=== PATIENT | female | born 1975 | race Caucasian/White ===

== ENCOUNTER → 2017-06-11 | Outpatient (CLI) | payer MEDICARE, OTHER | END | disposition home or self-care (01) | LOC: RADMAMWWP 15:06 | PROVIDERS: ATTEND Family Medicine | DX: Z53.9 Procedure and treatment not carried out, unspecified reason (principal) ==

== ENCOUNTER → 2017-12-14 | Outpatient (CLI) | payer MEDICARE, OTHER ==
--- NOTE | 2017-12-15 11:13 | MM ---
Reason for exam: screening (asymptomatic). Last mammogram was performed 2 years and 4 months ago. History: Family history of breast cancer in paternal grandmother at age 60 and breast cancer in grandmother at age 80. Took hormonal contraceptives for 5 years. Physical Findings: A clinical breast exam by your physician is recommended on an annual basis and results should be correlated with mammographic findings. MG 3D Screening Mammo W/Cad Bilateral CC and MLO view(s) were taken. Prior study comparison: August 02, 2015, bilateral MG 3d screening mammo w/cad. February 09, 2013, CAD bilateral diagnostic mammogram. The breast tissue is heterogeneously dense. This may lower the sensitivity of mammography. Focal asymmetry upper outer left breast 10.4cm from nipple. This finding is changed when compared with previous exams. ASSESSMENT: Incomplete: need additional imaging evaluation, BI-RAD 0 RECOMMENDATION: Special view mammogram of the left breast. If lesion persists on supplemental views, image directed ultrasound is recommended. [facility] will attempt to contact patient to return for supplemental views and ultrasound if indicated.
== END | disposition home or self-care (01) ==
LOC: RADMAMWWP 11:50
PROVIDERS: ATTEND Family Medicine
DX: Z12.31 Encounter for screening mammogram for malignant neoplasm of breast (principal)
CPT/HCPCS: 77063; 77067

== ENCOUNTER → 2017-12-29 | Outpatient (CLI) | payer MEDICARE, OTHER ==
--- NOTE | 2017-12-30 13:01 | MM ---
Reason for exam: additional evaluation requested from abnormal screening. Last mammogram was performed less than 1 month ago. History: Family history of breast cancer in paternal grandmother at age 60 and breast cancer in grandmother at age 80. Took hormonal contraceptives for 5 years. Physical Findings: Nurse did not find any significant physical abnormalities on exam. MG 3D Work Up W/Cad LT Spot compression CC, spot compression MLO, and LM view(s) were taken of the left breast. Prior study comparison: December 14, 2017, bilateral MG 3d screening mammo w/cad. August 02, 2015, bilateral MG 3d screening mammo w/cad. Persistent asymmetry upper outer left breast 12cm from nipple. These results were verbally communicated with the patient and result sheet given to the patient on 12/29/17. ASSESSMENT: Incomplete: need additional imaging evaluation, BI-RAD 0 RECOMMENDATION: Ultrasound of the left breast.
--- NOTE | 2017-12-30 13:03 | USB ---
Reason for exam: additional evaluation requested from abnormal screening. History: Family history of breast cancer in paternal grandmother at age 60 and breast cancer in grandmother at age 80. Took hormonal contraceptives for 5 years. US Breast Workup Limited LT Left limited breast ultrasound including focal area of concern, retroareolar and axilla demonstrates no cystic or solid lesion seen. These results were verbally communicated with the patient and result sheet given to the patient on 12/29/17. ASSESSMENT: Probably benign, BI-RAD 3 RECOMMENDATION: Follow-up diagnostic mammogram of the left breast in 6 months.
== END | disposition home or self-care (01) ==
LOC: RADMAMWWP 13:44
PROVIDERS: ATTEND Family Medicine
DX: R92.8 Other abnormal and inconclusive findings on diagnostic imaging of breast (principal)
CPT/HCPCS: 77065; 76642; G0279; 77061

== ENCOUNTER → 2018-01-18 | Outpatient (CLI) | payer MEDICARE, OTHER ==
--- NOTE | 2018-01-18 22:02 | CONS ---
CONSULTATION REASON FOR CONSULTATION: Sleep apnea. This is a 42-year-old female patient with known history of chronic anxiety, chronic panic attacks, chronic depression and bipolar disorder and history of delusions along with hypothyroidism and degenerative arthritis. The patient comes in for evaluation of sleep apnea. The patient states that she cannot breathe at night when she is lying down. She wakes up frequently and she has been told that she snores and she has night sweats. She has Mallampati class IV. Her weight has been essentially stable without any recent weight gain or weight loss. She does have a component of insomnia. She goes to bed around 11:30 p.m. and it sometimes takes her up to 5 a.m. to fall asleep. She attributes this to excessive anxiety. She feels restless in bed. Weight is stable at around 140, which is around 25 pounds up over the past few years. She sleeps on her side. She wakes up at least 4 to 5 times in the middle of the night. Current [place] Score is 9. PAST MEDICAL HISTORY: 1. Anxiety. 2. Panic attacks. 3. Depression. 4. Bipolar disorder. 5. Delusions. 6. Hypothyroidism. 7. Degenerative arthritis. PAST SURGICAL HISTORY: 1. Laparoscopy x3. 2. Right knee arthroscopy in July 2017. DRUG ALLERGIES: PENICILLIN AND LATEX. OUTPATIENT MEDICATION LIST: 1. Lamictal 50 mg p.o. daily. 2. Meloxicam 7.5 mg twice a day. 3. VESIcare 10 mg p.o. daily. 4. Klonopin 0.5 mg twice a day. FAMILY HISTORY: The patient is living alone right now. Her sister has insomnia. No history of any sleep breathing disorder. REVIEW OF SYSTEMS: Twelve-point review of systems was done. Positive findings are all mentioned above. She feels exhausted and tired during the day. Not a whole lot of sleepiness. No nightmares. No dreams. No history of any PTSD. No excessive coffee intake. Her weight has been stable. No history of substance abuse. No history of alcoholism. She drinks about 2 drinks every week. She has had no palpitations, no heartburn, no grinding of the teeth. No nocturia. PHYSICAL EXAMINATION: BP is 138/82, pulse 98, respirations 18, temperature 98.2, saturation 94% on room air. Neck size is 13. [place] score is 9. BMI 32.7. Weight is 165. GENERAL APPEARANCE: Calm, comfortable. Head is atraumatic, normocephalic. NECK: Supple. There is no JVD. No goiter or neck masses. Mallampati class III. LUNGS: Clear to auscultation. Heart sounds are regular rate and rhythm. Normal S1, S2. No S3, S4. No murmurs. ABDOMEN: Soft, nontender. No organomegaly. EXTREMITIES: No edema. No cyanosis or clubbing. NEUROLOGIC: The patient is awake and alert. No focal neurological deficits. SKIN: Negative for any wounds or ulceration. IMPRESSION: 1. Obstructive sleep apnea suspected, under investigation. 2. Sleep fragmentation, probably related to obstructive sleep apnea, although other factors are also contributing to her condition, and I do suspect a component of sleep onset and maintenance insomnia related to chronic anxiety and panic attacks and depression. Obviously the patient may have an underlying comorbid insomnia in addition. 3. Anxiety. 4. Panic attacks. 5. Depression. 6. Delusions. 7. Hypothyroidism. 8. Degenerative arthritis. PLAN: 1. Continue Klonopin at bedtime for sleep induction and maintenance. 2. Continue Lamictal for bipolar disorder. 3. Implement good sleep hygiene measures. 4. Proceed with a screening polysomnogram to characterize her sleep quality and see if there is any other contributing factor to her poor sleep quality in general. Will continue to follow and make further recommendations based on her overall progress. The results of the sleep study will be important to identify the factors affecting her sleep quality and make adjustments accordingly. MMODL / IJN: [id number] /
== END | disposition home or self-care (01) ==
LOC: SLEEP 13:15
PROVIDERS: ATTEND Internal Medicine Critical Care Medicine
DX: G47.00 Insomnia, unspecified (principal); F41.9 Anxiety disorder, unspecified; M19.90 Unspecified osteoarthritis, unspecified site; F32.9 Major depressive disorder, single episode, unspecified; F41.0 Panic disorder [episodic paroxysmal anxiety]; F22 Delusional disorders; E03.9 Hypothyroidism, unspecified; Z79.899 Other long term (current) drug therapy; Z79.1 Long term (current) use of non-steroidal anti-inflammatories (NSAID); Z88.0 Allergy status to penicillin; Z91.040 Latex allergy status
CPT/HCPCS: 99211

== ENCOUNTER 2018-10-24 16:26 | Emergency (ER) | payer MEDICARE, OTHER ==
[2018-10-24 16:34] VITALS: RESP 18
[2018-10-24] MEDS ORDERED: SODIUM CHLORIDE 0.9% 1,000 ML IV STA (17:49)
[2018-10-24] MEDS ORDERED: KETOROLAC 30 MG/ML 1 ML VIAL IVP STA (17:49)
--- NOTE | 2018-10-24 17:49 | ED ---
General Adult HPI - General Chief complaint: Abdominal Pain Stated complaint: abd.pain/back pain Time Seen by Provider: 10/24/18 17:25 Source: patient Mode of arrival: ambulatory Limitations: no limitations - History of Present Illness Initial comments: Dictation was produced using x.ai dictation software. please excuse any grammatical, word or spelling errors. Chief Complaint: 43-year-old female with no significant comorbidities presents with total body pain. History of Present Illness: A 43-year-old female presents with total body pain. Patient states she's been feeling this way for several days now. She had a similar episode to this several years ago. She states that she has no one specific complaint. She states she hurts from the top of her head to her abdominal area. Patient denies any significant comorbidities. Denies history of fibromyalgia. Patient has no nausea vomiting or fever. Patient does describe the pain as vague with no exacerbating or mitigating factors. The ROS documented in this emergency department record has been reviewed and confirmed by me. Those systems with pertinent positive or negative responses have been documented in the HPI. All other systems are other negative and/or noncontributory. PHYSICAL EXAM: General Impression: Alert and oriented x3, not in acute distress HEENT: Normocephalic atraumatic, extra-ocular movements intact, pupils equal and reactive to light bilaterally, mucous membranes moist. Cardiovascular: Heart regular rate and rhythm, S1&S2 audible, no murmurs, rubs or gallops Chest: Lungs clear to auscultation bilaterally, no rhonchi, no wheeze, no rales Abdomen: Bowel sounds present, abdomen soft, non-tender, non-distended, no organomegaly Musculoskeletal: Pulses present and equal in all extremities, no peripheral edema Motor: no focal deficits noted Neurological: CN II-XII grossly intact, no focal motor or sensory deficits noted Skin: Intact with no visualized rashes Psych: Normal affect and mood ED course: 43-year-old female presents today with chief complaint of total body pain. Vital signs upon arrival are within acceptable limits.Patient reevaluated found in stable medical condition. She does report mild improvement of her symptoms after intravenous fluids and Toradol. Laboratory evaluation obtained. CBC unremarkable. Metabolic panel shows mild gap acidosis. Patient does have 1+ ketones in the urine. Patient's symptoms likely secondary to dehydration. Patient on a pillow bedside care she is given 1 L of intravenous fluids. Patient told that she has acidosis found on her laboratory evaluation. Patient otherwise appears stable. Clear for discharge per she is told to follow-up with her primary care doctor upon discharge. Patient is understandable and agreeable to Disposition. - Related Data Home Medications Medication Instructions Recorded Confirmed Gabapentin 600 mg PO TID PRN 10/24/18 10/24/18 Levothyroxine Sodium [Tirosint] 25 mcg PO DAILY 10/24/18 10/24/18 Montelukast [Singulair] 10 mg PO HS 10/24/18 10/24/18 Allergies Allergy/AdvReac Type Severity Reaction Status Date / Time latex Allergy Itching Verified 10/24/18 17:37 Penicillins Allergy Unknown Verified 10/24/18 17:37 Review of Systems ROS Statement: Those systems with pertinent positive or pertinent negative responses have been documented in the HPI. ROS Other: All systems not noted in ROS Statement are negative. Past Medical History Past Medical History: No Reported History Additional Past Medical History / Comment(s): endometrosis History of Any Multi-Drug Resistant Organisms: None Reported Past Surgical History: No Surgical Hx Reported Past Psychological History: Anxiety, Bipolar Smoking Status: Current every day smoker Past Alcohol Use History: None Reported Past Drug Use History: None Reported General Exam Limitations: no limitations Course Vital Signs 10/24/18 16:30 Temperature 98.4 F Pulse Rate 83 Respiratory 18 Rate Blood Pressure 122/78 O2 Sat by Pulse 98 Oximetry Medical Decision Making - Lab Data Result diagrams: 10/24/18 18:00 10/24/18 18:00 Lab Results 10/24/18 10/24/18 10/24/18 Range/Units 18:00 18:00 18:27 WBC 8.2 (3.8-10.6) k/uL RBC 4.85 (3.80-5.40) m/uL Hgb 14.7 (11.4-16.0) gm/dL Hct 41.9 (34.0-46.0) % MCV 86.3 (80.0-100.0) fL MCH 30.3 (25.0-35.0) pg MCHC 35.1 (31.0-37.0) g/dL RDW 13.0 (11.5-15.5) % Plt Count 332 (150-450) k/uL Neutrophils % 71 % Lymphocytes % 20 % Monocytes % 6 % Eosinophils % 2 % Basophils % 1 % Neutrophils # 5.8 (1.3-7.7) k/uL Lymphocytes # 1.6 (1.0-4.8) k/uL Monocytes # 0.5 (0-1.0) k/uL Eosinophils # 0.1 (0-0.7) k/uL Basophils # 0.1 (0-0.2) k/uL Sodium 140 (137-145) mmol/L Potassium 4.1 (3.5-5.1) mmol/L Chloride 109 H (98-107) mmol/L Carbon Dioxide 21 L (22-30) mmol/L Anion Gap 10 mmol/L BUN 13 (7-17) mg/dL Creatinine 0.42 L (0.52-1.04) mg/dL Est GFR (CKD-EPI)AfAm >90 (>60 ml/min/1.73 sqM) Est GFR (CKD-EPI)NonAf >90 (>60 ml/min/1.73 sqM) Glucose 88 (74-99) mg/dL Calcium 9.7 (8.4-10.2) mg/dL Magnesium 1.8 (1.6-2.3) mg/dL Creatine Kinase 96 (30-135) U/L Urine Color Urine Appearance (Clear) Urine pH (5.0-8.0) Ur Specific [place] (1.001-1.035) Urine Protein (Negative) Urine Glucose (UA) (Negative) Urine Ketones (Negative) Urine Blood (Negative) Urine Nitrite (Negative) Urine Bilirubin (Negative) Urine Urobilinogen (<2.0) mg/dL Ur Leukocyte Esterase (Negative) Urine RBC (0-5) /hpf Urine WBC (0-5) /hpf Ur Squamous Epith Cells (0-4) /hpf Urine Bacteria (None) /hpf Urine Mucus (None) /hpf Urine HCG, Qual Not Detected (Not Detectd) 10/24/18 Range/Units 18:27 WBC (3.8-10.6) k/uL RBC (3.80-5.40) m/uL Hgb (11.4-16.0) gm/dL Hct (34.0-46.0) % MCV (80.0-100.0) fL MCH (25.0-35.0) pg MCHC (31.0-37.0) g/dL RDW (11.5-15.5) % Plt Count (150-450) k/uL Neutrophils % % Lymphocytes % % Monocytes % % Eosinophils % % Basophils % % Neutrophils # (1.3-7.7) k/uL Lymphocytes # (1.0-4.8) k/uL Monocytes # (0-1.0) k/uL Eosinophils # (0-0.7) k/uL Basophils # (0-0.2) k/uL Sodium (137-145) mmol/L Potassium (3.5-5.1) mmol/L Chloride (98-107) mmol/L Carbon Dioxide (22-30) mmol/L Anion Gap mmol/L BUN (7-17) mg/dL Creatinine (0.52-1.04) mg/dL Est GFR (CKD-EPI)AfAm (>60 ml/min/1.73 sqM) Est GFR (CKD-EPI)NonAf (>60 ml/min/1.73 sqM) Glucose (74-99) mg/dL Calcium (8.4-10.2) mg/dL Magnesium (1.6-2.3) mg/dL Creatine Kinase (30-135) U/L Urine Color Yellow Urine Appearance Clear (Clear) Urine pH 6.0 (5.0-8.0) Ur Specific [place] 1.018 (1.001-1.035) Urine Protein Negative (Negative) Urine Glucose (UA) Negative (Negative) Urine Ketones 1+ H (Negative) Urine Blood Small H (Negative) Urine Nitrite Negative (Negative) Urine Bilirubin Negative (Negative) Urine Urobilinogen <2.0 (<2.0) mg/dL Ur Leukocyte Esterase Negative (Negative) Urine RBC 7 H (0-5) /hpf Urine WBC 2 (0-5) /hpf Ur Squamous Epith Cells <1 (0-4) /hpf Urine Bacteria Rare H (None) /hpf Urine Mucus Rare H (None) /hpf Urine HCG, Qual (Not Detectd) Disposition Clinical Impression: Pain, Dehydration Disposition: HOME SELF-CARE Condition: Good Instructions (If sedation given, give patient instructions): Dehydration (ED) Is patient prescribed a controlled substance at d/c from ED?: No Referrals: Kate Spangler III, MD [Primary Care Provider] - 1-2 days Time of Disposition: 19:32
[2018-10-24 18:13] LABS: Basophils # (A) 0.1 k/uL (0-0.2); Basophils % (A) 1 %; Eosinophils # (A) 0.1 k/uL (0-0.7); Eosinophils % (A) 2 %; HCT 41.9 % (34.0-46.0); HGB 14.7 gm/dL (11.4-16.0); Lymphocytes # (A) 1.6 k/uL (1.0-4.8); Lymphocytes % (A) 20 %; MCH 30.3 pg (25.0-35.0); MCHC 35.1 g/dL (31.0-37.0); MCV 86.3 fL (80.0-100.0); Mean Platelet Volume 6.8; Monocytes # (A) 0.5 k/uL (0-1.0); Monocytes % (A) 6 %; Neutrophils # (A) 5.8 k/uL (1.3-7.7); Neutrophils % (A) 71 %; Platelet Count 332 k/uL (150-450); RBC 4.85 m/uL (3.80-5.40); WBC 8.2 k/uL (3.8-10.6)
[2018-10-24 18:17] LABS: Anion Gap 10 mmol/L; Blood Urea Nitrogen 13 mg/dL (7-17); Calcium 9.7 mg/dL (8.4-10.2); Carbon Dioxide 21 mmol/L (22-30); Chloride 109 mmol/L (98-107); Creatine Kinase 96 U/L (30-135); Glucose 88 mg/dL (74-99); Magnesium 1.8 mg/dL (1.6-2.3); Potassium 4.1 mmol/L (3.5-5.1); Sodium 140 mmol/L (137-145)
[2018-10-24 18:32] LABS: Appearance,Urine Clear (Clear); Bacteria,Urine Rare /hpf; Bilirubin,Urine Negative (Negative); Blood,Urine Small (Negative); Color,Urine Yellow; Glucose,Urine (UA) Negative (Negative); Ketones,Urine 1+ (Negative); Leukocyte Esterase,Urine Negative (Negative); Mucus,Urine Rare /hpf; Nitrite,Urine Negative (Negative); Protein,Urine Negative (Negative); RBC,Urine 7 /hpf (0-5); Specific Gravity,Urine 1.018 (1.001-1.035); Squamous Epithelial Cell,Urine <1 /hpf (0-4); Urobilinogen,Urine <2.0 mg/dL (<2.0)
--- NOTE | 2018-10-24 18:38 | XR ---
EXAMINATION TYPE: XR shoulder complete LT DATE OF EXAM: 10/24/2018 CLINICAL HISTORY: Pain. TECHNIQUE: Three views of the left shoulder are obtained. COMPARISON: None. FINDINGS: There is no acute fracture/dislocation evident in the left shoulder. The acromioclavicula r and glenohumeral joint spaces appear within normal limits. The visualized ribs are intact and unre markable. Superior to left acromioclavicular joint there is soft tissue indentation likely reflecting overlying clothing or bandage material. IMPRESSION: There is no acute fracture or dislocation in the left shoulder.
[2018-10-24 20:04] VITALS: BP 124/87; PULSE 87; TEMP 98.2
== END 2018-10-24 20:03 | disposition home or self-care (01) ==
LOC: EC 16:26
DX: E86.0 Dehydration (principal); R52 Pain, unspecified; E87.2 Acidosis; F17.200 Nicotine dependence, unspecified, uncomplicated; Z79.890 Hormone replacement therapy; Z79.899 Other long term (current) drug therapy; Z88.0 Allergy status to penicillin; Z91.040 Latex allergy status
CPT/HCPCS: 36415; 80048; 82550; 83735; 85025; 81001; 81025; 73030; 99284; 96374; 96361; J1885

== ENCOUNTER → 2018-12-16 | Outpatient (CLI) | payer MEDICARE, OTHER ==
--- NOTE | 2018-12-16 15:24 | CT ---
EXAMINATION TYPE: CT abdomen pelvis w con DATE OF EXAM: 12/16/2018 COMPARISON: None HISTORY: Epigastric pain. CT DLP: 595 mGycm CONTRAST: CT scan of the abdomen and pelvis is performed with Oral Contrast and with IV Contrast, patient injec victoria with 100ml mL of Isovue 300. FINDINGS: LUNG BASES-: No visible nodule. No infiltrate. LIVER/GB: No calcified gallstones. No space occupying hepatic lesion. Biliary tree is of normal ca liber. PANCREAS: No inflammation. No distinct mass. SPLEEN: No splenic enlargement. No lesion seen. ADRENALS: No nodule. No thickening. KIDNEYS/BLADDER: No hydronephrosis. No nephrolithiasis. No distinct renal mass. Urinary bladder g rossly unremarkable. BOWEL: Normal appendix. Normal bowel caliber. No inflammation. GENITAL ORGANS: Prominence of the uterus. Underlying leiomyomatous changes difficult to exclude. Lef t ovarian cyst measuring 1.1 cm. Right ovary is unremarkable. LYMPH NODES: No greater than 1cm abdominal or pelvic lymph nodes are appreciated. AORTA: No significant abnormality. OSSEOUS STRUCTURES: No significant abnormality is seen. OTHER: 4.0 x 2.2 cm midline ventral hernia at the level of the distal stomach just to the right of mi dline. IMPRESSION: 1. Fat-containing ventral hernia as discussed above. 2. Probable leiomyomatous change of the uterus. Left ovarian follicular cyst.
== END | disposition home or self-care (01) ==
LOC: RADCTMAIN 13:26
PROVIDERS: ATTEND Surgery
DX: K44.9 Diaphragmatic hernia without obstruction or gangrene (principal); N83.02 Follicular cyst of left ovary
CPT/HCPCS: 74177; Q9967

== ENCOUNTER → 2019-03-07 | Outpatient (CLI) | payer MEDICARE, OTHER ==
--- NOTE | 2019-03-07 15:41 | PN ---
PROGRESS NOTE Paola is 43 and she was asked to come and see me back due to the concerns of her narcolepsy. I have seen and evaluated this patient back in December of 2017. At that time, the patient was having chronic anxiety, chronic panic attacks. Chronic depression and bipolar disorder, and hypothyroidism. She was in a combination of medication including Klonopin. Over the past 2 years, there has been some adjustment in her medication. She was given trazodone for sleep induction and maintenance. This was given to her by her psychiatrist. The patient was having chronic comorbid insomnia. I saw this patient in consultation back in 2018. I did a sleep study on her and there was no indication of any sleep breathing disorder. The patient was able to generate 6 hours and 50 minutes of sleep without any major difficulties with an efficiency of 90%. Her latency to REM was 70 minutes and the sleep architecture showed 16% REM sleep. The patient has no sleep paralysis, no hallucinations, no cataplexy at all. Her weight has remained stable. The patient's sleep study showed primary snoring with an AHI of 0.9 without any major hypersomnia is without any major obstructive apneas or hypopneas. On today's evaluation. I reviewed. MEDICATION LIST: The patient is currently on trazodone 50 mg at bedtime. She is also on Neurontin 300 mg t.i.d. Benadryl 0.25 mg twice a day p.r.n. a Singulair 10 mg p.o. daily. REVIEW OF SYSTEMS: A 14-point review of system was done. Positive findings are mentioned above history of present illness. She is tired during the day. At times she feels lack of concentration. She does not have any substance abuse. No alcoholism. She does not take any substances to get herself stimulated during the day. No palpitation no heartburn no chest pain. No shortness of breath. No altered mentation. No headaches no altered mentation. No seizure activity. PHYSICAL EXAMINATION: BP is 111/70, pulse 90, respirations 16, temperature 98.2, saturation is 96% on room air. Height is 5,0, weight is 147, BMI is 28.5. GENERAL APPEARANCE: Calm, comfortable. Head is atraumatic, normocephalic. NECK: Supple. No JVD. No goiter or neck masses. LUNGS: Clear to auscultation. HEART: Sounds regular rate and rhythm. Normal S1/S2. No murmurs. ABDOMEN: Soft, nontender. No organomegaly. EXTREMITIES: No edema. No cyanosis or clubbing. IMPRESSION: 1. Primary snoring without evidence of sleep breathing disorder. 2. Comorbid insomnia currently on trazodone 150 mg with adequate ability to induce and maintain sleep/. 3. Chronic anxiety/depression. 4. History of panic attacks. 5. History of hypothyroidism. 6. History of delusions. PLAN: This patient does not have any indication to narcolepsy. As such, I do not see the need for PSG MSLT. In fact, during the study like this will require her to come off it as well. The patient is categorically refusing to cover trazodone for now knowing that this has helped with sleep induction and maintenance. As such, especially when the patient is taking trazodone, evaluation for narcolepsy is not possible. Also, the patient does not have any signs of narcolepsy. In fact, despite her chronic fatigue and tiredness, she has insomnia for which she is taking trazodone. Insomnia runs in her family. Currently is a comorbid insomnia. May suggest a stimulant to improve her functionality during the day if needed. This may be either in the form of Provigil or even though stimulant, leave the final decision up to a psychiatrist. No need for repeating the PSG or even considering MSLT at this point in time. MMODL / IJN: [id number] /

== ENCOUNTER → 2019-03-08 | Outpatient (CLI) | payer MEDICARE, OTHER ==
--- NOTE | 2019-03-09 02:59 | MR ---
EXAMINATION TYPE: MR brain wo/w con DATE OF EXAM: 03/08/2019 COMPARISON: 06/27/2015 HISTORY: Migraine, dizziness TECHNIQUE: Multiplanar, multisequence images of the brain and brainstem is performed without and with IV contras t, utilizing 7 mL intravenous Gadavist . FINDINGS: Ventricles of normal size. There is no mass effect nor midline shift. There is no sign of intracrania l hemorrhage. Brainstem is intact. There is no evidence of cerebral edema. Corpus callosum appears no rmal. Sella turcica appears normal. There is no evidence of orbital mass. There is no evidence of cor tical infarct. There is no pathologic enhancement. There is normal contrast opacification of the veno us sinuses. IMPRESSION: Normal MR scan of the brain. No change compared to old exam.
== END | disposition home or self-care (01) ==
LOC: RADMRIMAIN 15:41
PROVIDERS: ATTEND Psychiatry & Neurology Neurology
DX: G43.909 Migraine, unspecified, not intractable, without status migrainosus (principal); R42 Dizziness and giddiness
CPT/HCPCS: 70553; A9585

== ENCOUNTER → 2019-08-01 | Outpatient (CLI) | payer MEDICARE, OTHER ==
--- NOTE | 2019-08-01 16:21 | MR ---
EXAMINATION TYPE: MR cervical spine wo con DATE OF EXAM: 08/01/2019 COMPARISON: 05/10/2015 HISTORY: 44-year-old female Radiculopathy cervical region TECHNIQUE: Multiplanar, multisequence images of the cervical spine were acquired. FINDINGS: No craniocervical junction anomaly, predental space widening, or prevertebral soft tissue swelling. Reversal of the normal cervical lordosis but with preserved alignment. Mild heterogeneity of marrow signal without suspicious bone marrow placement. Benign fatty matrix hem angioma within the C7 vertebral body is unchanged. Mild multilevel degenerative disc disease shows progression from 2014 with greater degree of disc yung iccation. Posterior disc bulges are present now at C4-C5 and C5-C6. Scattered facet and uncovertebral joint arthropathy. At C2-C3, no canal or foraminal stenosis. At C3-C4, no canal or foraminal stenosis. At C4-C5, minimal posterior disc bulge with very mild narrowing of the spinal canal. No neuroforamina l stenosis. At C5-C6, there is posterior disc bulge with needle large edematous left paracentral disc extrusion i mpinging the left ventral cord causing a moderate overall spinal canal stenosis and severe left neuro foraminal stenosis. No edematous change seen within the cord at this level. At C6/C7, mild posterior disc bulge with mild facet arthropathy. No significant canal or foraminal st enosis. At C7-T1, mild facet arthropathy without significant canal or foraminal stenosis. IMPRESSION: 1. Mild multilevel degenerative disc disease progressed from 2014. 2. Reversal of the normal cervical lordosis centered at C5-C6 where there is greater degree of senior safety support manager ior disc bulging and a new large left paracentral disc extrusion. The herniated disc is edematous and impinges the left ventral cord causing a moderate overall spinal canal stenosis. No myelopathic cord signal change. Severe left neural foraminal stenosis at this level. 3. New mild narrowing of the spinal canal C4-C5 secondary to a minimal posterior disc bulge.
== END | disposition home or self-care (01) ==
LOC: RADMRIMAIN 14:49
PROVIDERS: ATTEND Family Medicine
DX: M48.02 Spinal stenosis, cervical region (principal); M50.121 Cervical disc disorder at C4-C5 level with radiculopathy; M50.30 Other cervical disc degeneration, unspecified cervical region
CPT/HCPCS: 72141

== ENCOUNTER → 2019-12-29 | Outpatient (CLI) | payer MEDICARE | END | disposition home or self-care (01) | LOC: LABWHC1 13:26 | PROVIDERS: ATTEND Surgery | DX: U07.1 COVID-19 (principal) ==

== ENCOUNTER 2020-01-02 09:48 | Day surgery (SDC) | payer MEDICARE, OTHER ==
[2019-12-29 09:31] VITALS: BMI 27.3
[~2020-01-02 09:48] MED LIST: CLINDAMYCIN 900 MG in DEXTROSE 5% IN WATER 50 ML IVPB ONE; DEXAMETHASONE SOD PHOSPHATE 10 MG/ML 1 ML VIAL IV ONE; LACTATED RINGERS 1,000 ML IV SCH; LEVOFLOXACIN 500MG-D5W PMX 500 MG in DEXTROSE/WATER 1 100ML.BAG IVPB ONE; LIDOCAINE 1% (10MG/ML) FOR IV START INTRADERMA PRN; MIDAZOLAM 2 MG/2 ML VIAL IV PRN; ONDANSETRON 4 MG/2 ML VIAL IVP ONE; Pre Op ABX Message 1 EACH MISC MISCELLANE ONE
[2020-01-02 10:13] VITALS: RESP 16
[2020-01-02] MEDS ORDERED: KETOROLAC 30 MG/ML 1 ML VIAL ONE (12:31)
[2020-01-02] MEDS ORDERED: SUCCINYLCHOLINE CHLORIDE 100 MG/5 ML SYR IV ONE (12:31)
[2020-01-02] MEDS ORDERED: LIDOCAINE 1% INJ 10MG/ML (20 ML MDV) ONE (12:31)
[2020-01-02] MEDS ORDERED: ROCURONIUM BROMIDE 10 MG/ML 5 ML VIAL IV ONE (12:31)
[2020-01-02] MEDS ORDERED: MIDAZOLAM 2 MG/2 ML VIAL ONE (12:31)
[2020-01-02] MEDS ORDERED: fentaNYL (PF) 50 MCG/ML 2 ML AMP ONE (12:31)
[2020-01-02] MEDS ORDERED: GLYCOPYRROLATE 0.2 MG/ML 2 ML VIAL ONE (12:31)
[2020-01-02] MEDS ORDERED: NEOSTIGMINE 1 MG/ML 10 ML VIAL ONE (12:31)
[2020-01-02] MEDS ORDERED: PROPOFOL 10 MG/ML 20 ML VIAL IV ONE (12:31)
[2020-01-02] MEDS ORDERED: BUPIVACAIN-EPI 0.25%-1:200,000 30 ML VIAL SQ ONE ×2 (13:08)
[2020-01-02] MEDS ORDERED: LACTATED RINGERS 1,000 ML IV ONE (13:21)
--- NOTE | 2020-01-02 13:27 | P.OP ---
Date of Procedure: 01/02/20 Preoperative Diagnosis: Ventral hernia Postoperative Diagnosis: Ventral hernia Procedure(s) Performed: Ventral hernia repair with mesh Anesthesia: MARIELY Surgeon: Niki Patel Estimated Blood Loss (ml): 5 Pathology: none sent Condition: stable Disposition: PACU Indications for Procedure: The patient presented with a small symptomatic ventral hernia seen best on computed tomography scan Description of Procedure: The patient's taken the operative suite where she is prepped and draped in the usual sterile manner under a general endotracheal anesthetic. Local anesthetic is instilled into the skin and subcutaneous tissue. A skin incision was made. Dissection was carried out to the incarcerated preperitoneal fat. This was dissected free from the fascia. The preperitoneal space was then entered and this was bluntly dissected. Once adequate space was made a 6.4 cm round mesh was placed into the area and deployed. Gives good under coverage. It was secured to the fascia using 0 Vicryl at the periphery. The midline was then closed with 0 Vicryl taking bites of the mesh to secure it in place. The skin was closed with 4-0 Vicryl in a subcuticular manner. Steri-Strips and dressings were applied. She tolerated the procedure without difficulty and was taken recovery room in satisfactory condition. According to or personnel, all counts WERE correct. Plan - Discharge Summary New Discharge Prescriptions: New HYDROcodone/APAP 5-325MG [[place] 5-325] 1 - 2 tab PO Q4H PRN #20 tab PRN Reason: Pain No Action Montelukast [Singulair] 10 mg PO HS Levothyroxine Sodium [Tirosint] 25 mcg PO DAILY Gabapentin 600 mg PO TID PRN PRN Reason: Pain Meloxicam [Mobic] 15 mg PO DAILY Fluticasone Nasal [place] [Flonase Nasal [place]] 1 spray EA NOSTRIL HS Cyclobenzaprine [Flexeril] 10 mg PO HS Albuterol Inhaler [Ventolin Hfa Inhaler] 1 puff INHALATION BID traZODone HCL 150 mg PO HS diphenhydrAMINE HCL [Benadryl] 25 - 50 mg PO HS Loratadine [Claritin] 10 mg PO DAILY Ibuprofen [Advil] 200 mg PO Q6HR PRN PRN Reason: Pain Ashwagandha 1 cap PO TID PRN PRN Reason: depressions Discharge Medication List Gabapentin 600 mg PO TID PRN 10/24/18 [History] Levothyroxine Sodium [Tirosint] 25 mcg PO DAILY 10/24/18 [History] Montelukast [Singulair] 10 mg PO HS 10/24/18 [History] Albuterol Inhaler [Ventolin Hfa Inhaler] 1 puff INHALATION BID 12/29/19 [History] Ashwagandha 1 cap PO TID PRN 12/29/19 [History] Cyclobenzaprine [Flexeril] 10 mg PO HS 12/29/19 [History] Fluticasone Nasal [place] [Flonase Nasal [place]] 1 spray EA NOSTRIL HS 12/29/19 [History] Ibuprofen [Advil] 200 - 600 mg PO Q6HR PRN 12/29/19 [History] Loratadine [Claritin] 10 mg PO DAILY 12/29/19 [History] Meloxicam [Mobic] 15 mg PO DAILY 12/29/19 [History] diphenhydrAMINE HCL [Benadryl] 25 - 50 mg PO HS 12/29/19 [History] traZODone HCL 150 mg PO HS 12/29/19 [History] HYDROcodone/APAP 5-325MG [[place] 5-325] 1 - 2 tab PO Q4H PRN #20 tab 01/02/20 [R x] Follow up Appointment(s)/Referral(s): Niki Patel DO [Doctor of Osteopathic Medicine] - 2 Weeks Activity/Diet/Wound Care/Special Instructions: Ice to the incision for 24-48 hours. Keep the current dressing on until . The dressing may then be removed and you may shower. No lifting more than 10 [address] while taking pain pills. You may take 1-3 tablets of Motrin 4 times a day as needed for additional discomfort. Expect some bruising. Call if questions or concerns
[2020-01-02] MEDS: HYDROmorphone 0.5 MG/0.5 ML SYRINGE IVP PRN ×2 (13:31→13:36)
[2020-01-02] MEDS ORDERED: ALBUTEROL NEBULIZED 2.5 MG/3 ML INHALATION ONE (13:57)
[2020-01-02 14:04] VITALS: TEMP 97.8
[2020-01-02 14:43] VITALS: BP 101/67; PULSE 65
== END 2020-01-02 15:13 | disposition home or self-care (01) ==
LOC: OR 09:48
PROVIDERS: ATTEND Surgery
DX: K43.9 Ventral hernia without obstruction or gangrene (principal); D64.9 Anemia, unspecified; G43.909 Migraine, unspecified, not intractable, without status migrainosus; E03.9 Hypothyroidism, unspecified; J45.909 Unspecified asthma, uncomplicated; Z79.1 Long term (current) use of non-steroidal anti-inflammatories (NSAID); F17.200 Nicotine dependence, unspecified, uncomplicated; Z79.890 Hormone replacement therapy; Z79.899 Other long term (current) drug therapy; Z88.0 Allergy status to penicillin; Z91.040 Latex allergy status
CPT/HCPCS: 81025; 49560; 49568; C1781; J2250; J1100; J2710; J2405; J2001; J3010; J1885; J0330; J2704; J1170

== ENCOUNTER → 2020-01-18 | Outpatient (CLI) | payer MEDICARE, OTHER ==
[2020-01-18 18:40] LABS: African American GFR (CKD) 136.4 (60.0-200.0); Calcium 9.4 mg/dL (8.7-10.3); Non-African American GFR(CKD) 117.7 (60.0-200.0); Potassium 4.1 mmol/L (3.5-5.5)
== END | disposition home or self-care (01) ==
LOC: LABWHC1 12:17
PROVIDERS: ATTEND Physician Assistant Medical
DX: R74.8 Abnormal levels of other serum enzymes (principal)
CPT/HCPCS: 36415; 80048

== ENCOUNTER → 2020-04-08 | Outpatient (CLI) | payer MEDICARE, OTHER ==
[2020-04-09 09:50] LABS: Alt. alternata IgE Class CLASS 0; Alternaria alternata IgE <0.10 kU/L (<0.10); Asperg. fumagatus IgE <0.10 kU/L (<0.10); Asperg. fumagatus IgE Class CLASS 0; Aureo. pullulans IgE <0.10 kU/L (<0.10); Aureo. pullulans IgE Class CLASS 0; Birch(Com.Silvr) IgE <0.10 kU/L (<0.10); Birch(Com.Silvr) IgE Class CLASS 0; Candida albicans IgE Class CLASS 0/1; Clad herbarum IgE <0.10 kU/L (<0.10); Clad herbarum IgE Class CLASS 0; Cottonwood IgE <0.10 kU/L (<0.10); Cow's Milk IgE Class CLASS 0; Egg White IgE <0.10 kU/L (<0.10); Epicoccum purpurascens Class CLASS 0; Epicoccum purpurascens IgE <0.10 kU/L (<0.10); Lobster IgE <0.10 kU/L (<0.10); Lobster IgE Class CLASS 0; Maple (Box Elder) IgE <0.10 kU/L (<0.10); Maple (Box Elder) IgE Class CLASS 0; Mucor racemosus IgE <0.10 kU/L (<0.10); Mucor racemosus IgE Class CLASS 0; Oak IgE <0.10 kU/L (<0.10); Peanut IgE <0.10 kU/L (<0.10); Potato IgE <0.10 kU/L (<0.10); Potato IgE Class CLASS 0; Rhizopus nigricans IgE <0.10 kU/L (<0.10); Rhizopus nigricans IgE Class CLASS 0; S.rostrata/Helminth Class CLASS 0; S.rostrata/Helminth IgE <0.10 kU/L (<0.10); Soybean IgE <0.10 kU/L (<0.10); Sycamore(Mpl.Lf) IgE <0.10 kU/L (<0.10); Sycamore(Mpl.Lf) IgE Class CLASS 0; Walnut Tree IgE <0.10 kU/L (<0.10); Walnut Tree IgE Class CLASS 0; White Ash IgE Class CLASS 0
[2020-04-09 09:51] LABS: Cat Epith & Dander IgE <0.10 kU/L (<0.10); Cat Epith & Dander IgE Class CLASS 0; Cockroach IgE <0.10 kU/L (<0.10); Com. Pigweed IgE <0.10 kU/L (<0.10); Com. Pigweed IgE Class CLASS 0; Dermato. Pteronyssinus Class CLASS 0; Dermato. Pteronyssinus IgE <0.10 kU/L (<0.10); Dermato. farinae IgE <0.10 kU/L (<0.10); Dermato. farinae IgE Class CLASS 0; Dog Dander IgE <0.10 kU/L (<0.10); English Plantain IgE Class CLASS 0; Johnson Grass IgE Class CLASS 0; Lamb's Quarter IgE <0.10 kU/L (<0.10); Lamb's Quarter IgE Class CLASS 0; Timothy Grass IgE <0.10 kU/L (<0.10); Timothy Grass IgE Class CLASS 0
== END | disposition home or self-care (01) ==
LOC: LABWHC1 15:06
PROVIDERS: ATTEND Otolaryngology
DX: J30.89 Other allergic rhinitis (principal)
CPT/HCPCS: 36415; 86001; 86003

== ENCOUNTER → 2020-05-14 | Outpatient (CLI) | payer MEDICARE, OTHER ==
--- NOTE | 2020-05-14 21:05 | XR ---
EXAMINATION TYPE: XR chest 2V DATE OF EXAM: 05/14/2020 CLINICAL HISTORY: Difficulty in breathing. History of asthma. TECHNIQUE: Frontal and lateral views of the chest are obtained. COMPARISON: None FINDINGS: The cardiomediastinal silhouette is within normal limits for size. Pulmonary vasculature i s normal. Linear atelectasis or scarring of the left midlung. There is no focal air space opacity, pl eural effusion, or pneumothorax seen. The osseous structures are intact. IMPRESSION: No acute cardiopulmonary process.
== END | disposition home or self-care (01) ==
LOC: RAD 16:40
PROVIDERS: ATTEND Physician Assistant Medical
DX: J45.40 Moderate persistent asthma, uncomplicated (principal); R06.00 Dyspnea, unspecified
CPT/HCPCS: 71046

== ENCOUNTER → 2020-05-28 | Outpatient (CLI) | payer MEDICARE, OTHER | END | disposition home or self-care (01) | LOC: RADECHMAIN 05-17 12:28 | PROVIDERS: ATTEND Family Medicine | DX: R00.2 Palpitations (principal); E03.9 Hypothyroidism, unspecified | CPT/HCPCS: 93225; 93226 ==

== ENCOUNTER → 2020-08-13 | Outpatient (CLI) | payer MEDICARE, OTHER | END | disposition home or self-care (01) | LOC: CPPFTMAIN 13:22 | PROVIDERS: ATTEND Family Medicine | DX: J45.40 Moderate persistent asthma, uncomplicated (principal); R94.2 Abnormal results of pulmonary function studies; R06.00 Dyspnea, unspecified | CPT/HCPCS: 94060; 94726; 94729 ==

== ENCOUNTER 2020-09-03 07:32 | Day surgery (SDC) | payer MEDICARE, OTHER ==
[2020-08-30 11:12] VITALS: BMI 30.4
[~2020-09-03 07:32] MED LIST changes: -CLINDAMYCIN 900 MG in DEXTROSE 5% IN WATER 50 ML IVPB ONE; -DEXAMETHASONE SOD PHOSPHATE 10 MG/ML 1 ML VIAL IV ONE; -LEVOFLOXACIN 500MG-D5W PMX 500 MG in DEXTROSE/WATER 1 100ML.BAG IVPB ONE; -MIDAZOLAM 2 MG/2 ML VIAL IV PRN; -ONDANSETRON 4 MG/2 ML VIAL IVP ONE; -Pre Op ABX Message 1 EACH MISC MISCELLANE ONE
[2020-09-03 08:07] VITALS: TEMP 97
[2020-09-03] MEDS ORDERED: LIDOCAINE 1% INJ 10MG/ML (20 ML MDV) ONE (08:31)
[2020-09-03] MEDS ORDERED: PROPOFOL 10 MG/ML 20 ML VIAL IV ONE (08:31)
[2020-09-03 08:49] VITALS: RESP 16
[2020-09-03 09:03] VITALS: BP 104/56; PULSE 71
--- NOTE | 2020-09-03 09:04 | P.PCN ---
Date of Procedure: 09/03/20 Description of Procedure: BRIEF HISTORY: Patient is a 45-year-old female presenting for outpatient esophagogastroduodenoscopy for evaluation of dysphagia/esophageal dysphagia. She reports episodes of intermittent dysphagia occurring for years. She feels this has become more frequent. She reports dysphagia both to solids and liquids. No prior EGD. PROCEDURE PERFORMED: Esophagogastroduodenoscopy with biopsy . PREOPERATIVE DIAGNOSIS: Dysphagia, esophageal dysphagia ESTIMATED BLOOD LOSS: Minimal. IV sedation per anesthesia. PROCEDURE: After informed consent was obtained, the patient was brought into the endoscopy unit. IV sedation was administered by Anesthesia under continuous monitoring. Initially the Olympus GIF-190 video endoscope was inserted into the mouth. Esophagus intubated without any difficulty. It was gradually advanced into the stomach and duodenum and carefully examined. The bulb and the second part of the duodenum appeared normal, With biopsies taken to rule out celiac sprue. The scope at this time was withdrawn to the stomach, adequately insufflated with air, and upon careful examination, mucosa of the antrum, body, cardia and the fundus appeared normal, Except for some mild punctate erythema in the antrum and body suggestive of mild gastritis with one 2 mm linear non-cratered and nonbleeding ulcer with biopsies taken of the antrum and body as well as he ulcer. The scope was then withdrawn into the esophagus. The GE junction was located at 36 cm from the incisors and biopsies. The esophagus appeared normal, With mid esophageal biopsies to rule out EOE. There were no erosions or ulcerations seen and the patient tolerated the procedure well. IMPRESSION: 1. Mild gastritis . 2. Superficial nonbleeding antral ulcer. 3. Biopsies of the duodenum, antrum and body, GE junction and midesophagus. RECOMMENDATIONS: The findings of this examination were discussed with the patient. Okay for diet. Okay to resume medications. Would recommend avoiding NSAID medications. Patient will be given a prescription of omeprazole 20 mg twice daily for 2 months to see if this helps with symptoms of dysphagia and for treatment of antral ulcer. Can consider repeat EGD in 6-8 weeks to check for ulcer healing.
== END 2020-09-03 09:35 | disposition home or self-care (01) ==
LOC: ORWHC2ENDO 07:32
PROVIDERS: ATTEND Internal Medicine
DX: K31.9 Disease of stomach and duodenum, unspecified (principal); K29.70 Gastritis, unspecified, without bleeding; K25.9 Gastric ulcer, unspecified as acute or chronic, without hemorrhage or perforation; I47.1 Supraventricular tachycardia; E78.5 Hyperlipidemia, unspecified; Z87.891 Personal history of nicotine dependence; E07.9 Disorder of thyroid, unspecified; K21.9 Gastro-esophageal reflux disease without esophagitis; E66.9 Obesity, unspecified; Z68.33 Body mass index [BMI] 33.0-33.9, adult; Z79.1 Long term (current) use of non-steroidal anti-inflammatories (NSAID); Z79.890 Hormone replacement therapy; Z79.899 Other long term (current) drug therapy; Z98.890 Other specified postprocedural states; Z88.0 Allergy status to penicillin; Z91.040 Latex allergy status
CPT/HCPCS: 81025; 88305; 43239; J2001; J2704

== ENCOUNTER → 2021-03-24 | Outpatient (CLI) | payer MEDICARE, OTHER ==
--- NOTE | 2021-03-24 21:36 | ECHOF ---
Referral Reason:R07.9 chest pain MEASUREMENTS -------- HEIGHT: 152.4 cm WEIGHT: 68.0 kg BP: IVSd: 0.8 cm (0.6 - 1.1) LVIDd: 4.0 cm (3.9 - 5.3) LVPWd: 1.1 cm (0.6 - 1.1) EDV(Teich): 68 ml IVSs: 1.0 cm LVIDs: 2.9 cm LVPWs: 1.2 cm %IVS Thck: 36 % ESV(Teich): 31 ml EF(Teich): 55 % %FS: 28 % SV(Teich): 37 ml LA Diam: 2.8 cm (2.7 - 3.8) LALs A4C: 4.0 cm LAAs A4C: 9.0 cm LAESV A-L A4C: 17 ml LAESV MOD A4C: 16 ml LALs A2C: 4.7 cm LAAs A2C: 13.5 cm LAESV A-L A2C: 33 ml LAESV MOD A2C: 31 ml LAESV(A-L): 26 ml LAESV Index (A-L): 15.52 ml/m Ao Diam: 2.7 cm (2.0 - 3.7) LA Diam: 3.0 cm (2.7 - 3.8) AV Cusp: 1.4 cm (1.5 - 2.6) EPSS: 0.2 cm MV E Hai: 0.57 m/s MV DecT: 221 ms MV Dec Bryan: 2.6 m/s MV A Hai: 0.78 m/s MV E/A Ratio: 0.73 MV PHT: 64 ms TR Vmax: 1.76 m/s TR maxP.37 mmHg RAP: 5.00 mmHg RVSP: 17.37 mmHg MV EF SLOPE: 92.06 mm/s (70 - 150) MV EXCURSION: 14.84 mm (> 18.000) FINDINGS -------- Sinus rhythm. This was a technically good study. LV size, wall thickness and systolic function are normal, with an EF greater than 55%. The left chantelle tricular size is normal. The right ventricle is normal in size. Normal LA size by volume 22+/-6 ml/m2. The right atrial size is normal. The aortic valve is trileaflet, and appears structurally normal. No aortic stenosis or regurgitation. Mild mitral regurgitation is present. Mild tricuspid regurgitation present. Right ventricular systolic pressure is normal at < 35 mmHg. There is no pulmonic regurgitation present. There is no pericardial effusion. CONCLUSIONS -------- 1. LV size, wall thickness and systolic function are normal, with an EF greater than 55%. 2. The left ventricular size is normal. 3. The right ventricle is normal in size. 4. Normal LA size by volume 22+/-6 ml/m2. 5. The right atrial size is normal. 6. The aortic valve is trileaflet, and appears structurally normal. No aortic stenosis or regurgitati on. 7. Mild mitral regurgitation is present. 8. Mild tricuspid regurgitation present. 9. There is no pericardial effusion. TEACHER DRAMA: Rani Collins RDCS
== END | disposition home or self-care (01) ==
LOC: RADECHMAIN 13:59
PROVIDERS: ATTEND Family Medicine
DX: I08.1 Rheumatic disorders of both mitral and tricuspid valves (principal)
CPT/HCPCS: 93306